=== PATIENT | male | born 1945 | race Caucasian/White ===

== ENCOUNTER → 2021-11-20 13:45 | Outpatient (BNVA) | payer MEDICARE, OTHER, SELFPAY | PROVIDERS: Family Provider Nurse Practitioner Family; PCP Nurse Practitioner Family; Visit Provider Internal Medicine Cardiovascular Disease | DX: I49.8 Other specified cardiac arrhythmias (principal); I10 Essential (primary) hypertension; J45.909 Unspecified asthma, uncomplicated; Z87.891 Personal history of nicotine dependence | CPT/HCPCS: 93005; 99203; 99204 ==

== ENCOUNTER 2021-12-13 14:12 | Outpatient (CLI) | payer MEDICARE, OTHER, SELFPAY ==
--- NOTE | 2021-12-13 15:00 | USCV_ITS ---
Elier Jose Alfredo Age: 76 Gender: M : 1945 Exam Date: 12/13/2021 15:13 Ordering Phys: Bayron Sifuentes MD ([email or web address]) Technologist: Tayler Forrest [place] [facility] [place]: PIERCE, ventricular arrhythmia BP: 128 / 80 HR: 47 Rhythm: Sinus Technical Quality: Good MEASUREMENTS (Male / Female) Normal Values 2D ECHO LV Diastolic Diameter PLAX 5.3 cm 4.2 - 5.9 / 3.9 - 5.3 cm LV Systolic Diameter PLAX 3.6 cm IVS Diastolic Thickness 0.9 cm 0.6 - 1.0 / 0.6 - 0.9 cm IVS Systolic Thickness 1.2 cm LVPW Diastolic Thickness 1.0 cm 0.6 - 1.0 / 0.6 - 0.9 cm LVPW Systolic Thickness 1.8 cm LVOT Diameter 2.1 cm LV Ejection Fraction 2D Teich 59.9 % LV Ejection Fraction MOD 2C 65.4 % LV Ejection Fraction 2C AL 64.9 % LA Diameter 2.3 cm LA Width 2.1 cm LA Height 4.4 cm RA Width 3.0 cm RA Height 4.6 cm Aorta at Sinotubular Diameter 2.6 cm IVC Diameter 1.1 cm M-MODE MV E Point Septal Separation 0.9 cm DOPPLER AV Peak Velocity 158.0 cm/s LVOT Peak Velocity 106.0 cm/s AV Area Cont Eq vti 2.2 cm squared AV Area Cont Eq pk 2.3 cm squared MV Peak Velocity 97.0 cm/s MV Area PHT 2.9 cm squared Mitral E to A Ratio 0.8 MV E' Velocity 36.5 cm/s Mitral E to MV E' Ratio 7.9 Mitral E to LV E' Lateral Ratio 6.4 Mitral E to LV E' Septal Ratio 10.4 TR Peak Velocity 33.0 cm/s TR Peak Gradient 0.4 mmHg Right Atrial Pressure 3.0 mmHg Pulmonary Artery Systolic Pressu 3.4 mmHg PV Peak Velocity 110.0 cm/s RV Acceleration Time 0.2 s RV Ejection Time 0.4 s RV AcT/ET 0.5 FINDINGS Left Ventricle Diffuse hypokinesia of the left ventricular with an ejection fraction of 40-45%.( visual) Normal left ventricular cavity size. Right Ventricle The right ventricle is normal in size and function. Right Atrium The right atrium is normal in size. Left Atrium The left atrium is normal in size. Mitral Valve Thickened mitral valve. Mild mitral valve regurgitation. Aortic Valve Thickened aortic valve. Mild aortic valve regurgitation. Tricuspid Valve No gross abnormalities noted Pulmonic Valve Mild pulmonary valve regurgitation. Pericardium Normal pericardium without effusion. Aorta Normal ascending aorta dimension. IVC The inferior vena cava pulmonary and hepatic veins appear normal. CONCLUSIONS Diffuse hypokinesia of the left ventricle with an ejection fraction of 40-45%Visual). Normal left ventricular cavity size. Thickened mitral valve. Mild mitral valve regurgitation. Thickened aortic valve. Mild aortic valve regurgitation. Mild pulmonary valve regurgitation. There is no pericardial effusion. There are no intracardiac masses. Dr Bayron Sifuentes MD [facility] (Electronically Signed) Final Date: 15 December 2021 18:33 S
== END 2021-12-13 14:13 | disposition home or self-care (01) ==
LOC: RAD 14:12
PROVIDERS: Family Provider Nurse Practitioner Family; PCP Nurse Practitioner Family; Visit Provider Internal Medicine Cardiovascular Disease
DX: I49.8 Other specified cardiac arrhythmias (principal); I08.3 Combined rheumatic disorders of mitral, aortic and tricuspid valves; I09.89 Other specified rheumatic heart diseases
CPT/HCPCS: 93306

== ENCOUNTER 2022-01-17 06:58 | Outpatient (CLI) | payer MEDICARE, OTHER, SELFPAY ==
--- NOTE | 2022-01-17 07:23 | ECG_ITS ---
[facility] Test Date: 2022-01-17 Pat Name: Jose Alfredo Thapa Department: Room: Gender: Male [employer]: : 1945 Requested By: Bayron Sifuentes Order Number: [id number] Fam MD: Bayron Sifuentes M.D. Interpretive Statements NAME OF STUDY: EXERCISE SESTAMIBI STRESS TEST INDICATION: Chest Pain PROCEDURE: The baseline electrocardiogram showed sinus bradycardia with some nonspecific T wave changes. At the baseline, the patient's blood pressure was mm Hg with a heart rate of. The patient exercised for 7 minutes and 19 seconds on a standard Michael protocol. Patient attained a maximum heart rate of 130 beats per minute(89% of the maximum predicted heart rate) with a blood pressure at the peak exercise of 189/101 mm Hg. The EKG at the peak exercise revealed rate related left bundle branch block. Patient did not have any chest pain or any significant arrhythmis with the exercise Sestamibi was injected 1 minute prior to the peak exercise During the recovery phase, there were no new changes. Blood pressure at the end of the recovery phase was 183/108 mm Hg with a heart rate of 80 per minute. The EKG persistently showed left bundle branch block during the recovery phase CONCLUSION: 1. Exercise-induced left bundle branch block, persisting through recovery phase. Patient apparently did not have any symptoms with the EKG changes. 2. No exercise-induced chest pain or cardiac arrhythmia 3. Fair exercise tolerance, attained a maximum of 10.2 METs 4. Sestamibi/Sestamibi perfusion results pending; see separate report. Electronically Signed On 01-25-2022 17:09:28 CDT by Bayron Sifuentes M.D. [id number]
--- NOTE | 2022-01-17 07:23 | NMCV_ITS ---
NM leandro perf SPECT r/s* [id number] Jose Alfredo Thapa Age: 76 Gender: M : 1945 Exam Date: 01/17/2022 08:25 Ordering Phys: Bayron Siufentes MD ([email or web address]) Technologist: KAYLEE Greco Exam Location: [facility] Indications: CORONARY ANGIOPLASTY STATUS STRESS TEST Please see separate stress test report in [facility] for full findings IMAGE PROTOCOL Rest/Stress 1 Exercise Day Radiopharmaceutical Dose (mCi) Administration Site Administered by Rest: Tc-99m 10.8 IV KAYLEE Dickson Sestamibi Stress:Tc-99m 32.4 IV KAYLEE Dickson Sestamibi Rest: 17-Jan-2022 60 Discovery 630 Stress: 17-Jan-2022 30 Discovery 630 Radiopharmaceutical was injected at 85 % maximum heart rate. Images obtained in supine and prone position. SPECT RESULTS Technical Quality: Excellent Raw Data Analysis: Normal Image Corrections: No attenuation or motion correction applied Summed Stress Score: 3 Summed Rest Score: 3 Summed Difference Score: 0 PERFUSION FINDINGS Small area of decreased tracer uptake in the apical septal and LV apex. No significant reversibility was noted FUNCTIONAL RESULTS (calculated via Gated SPECT) Stress Image LV EF (%): 51 Stress EDV (mL):143 TID: 1.03 Stress ESV (mL):70 FUNCTIONAL FINDINGS: Segmental wall motion analysis revealed mild diffuse hypokinesia of the septum and LV apex IMPRESSIONS 1. Myocardial perfusion imaging revealing a small area of persistent decreased tracer uptake in the apical septum and LV apex, suggesting myocardial scarring versus attenuation artifact. 2. Normal LV ejection fraction of 51%. 3. LV wall motion abnormalities as mentioned above. 4. Mildly dilated LV cavity with an end-systolic volume of 70 ml. Low probability for coronary ischemia, based on the above findings No similar previous studies are available for comparison Dr Bayron Sifuentes MD [facility] (Electronically Signed) Final Date: 17 January 2022 20:29 S
[2022-01-17 11:28] VITALS: BP 188/86; PULSE 72
== END 2022-01-17 06:59 | disposition home or self-care (01) ==
LOC: CDL 07:03
PROVIDERS: PCP Nurse Practitioner Family; Visit Provider Internal Medicine Cardiovascular Disease
DX: R07.9 Chest pain, unspecified (principal); Z98.61 Coronary angioplasty status
CPT/HCPCS: 78452; 93017; A9500

== ENCOUNTER → 2022-05-22 14:19 | Outpatient (BNVA) | payer MEDICARE, OTHER, SELFPAY | PROVIDERS: PCP Nurse Practitioner Family; Visit Provider Nurse Practitioner Family | DX: I10 Essential (primary) hypertension (principal); I49.8 Other specified cardiac arrhythmias; Z87.891 Personal history of nicotine dependence | CPT/HCPCS: 99214 ==

== ENCOUNTER → 2022-11-27 15:09 | Outpatient (BNVA) | payer MEDICARE, OTHER, SELFPAY | PROVIDERS: PCP Nurse Practitioner Family; Visit Provider Internal Medicine Cardiovascular Disease | DX: I49.8 Other specified cardiac arrhythmias (principal); I10 Essential (primary) hypertension; I42.9 Cardiomyopathy, unspecified; J45.909 Unspecified asthma, uncomplicated; Z87.891 Personal history of nicotine dependence | CPT/HCPCS: 99214 ==

== ENCOUNTER 2023-05-26 12:20 | Outpatient (CLI) | payer OTHER, SELFPAY ==
[2023-05-26] MEDS: albuterol 2.5 mg/3 mL Neb INHALATION (12:59)
[2023-05-26 13:01] VITALS: PULSE 54; RESP 18; O2SAT 97
[2023-05-26 13:05] VITALS: PULSE 63
== END 2023-05-26 12:21 | disposition home or self-care (01) ==
PROVIDERS: PCP Nurse Practitioner Family; Visit Provider Nurse Practitioner Family
DX: J44.9 Chronic obstructive pulmonary disease, unspecified (principal); R94.2 Abnormal results of pulmonary function studies
CPT/HCPCS: 94060; 94729; J7613

== ENCOUNTER → 2024-01-25 13:45 | Outpatient (BNVA) | payer MEDICARE, OTHER, SELFPAY | PROVIDERS: PCP Nurse Practitioner Family; Visit Provider Internal Medicine Cardiovascular Disease | DX: I42.8 Other cardiomyopathies (principal); I10 Essential (primary) hypertension; I49.8 Other specified cardiac arrhythmias; Z87.891 Personal history of nicotine dependence | CPT/HCPCS: 99214 ==

== ENCOUNTER → 2024-09-23 10:39 | Outpatient (BNVA) | payer OTHER, SELFPAY | PROVIDERS: PCP Nurse Practitioner Family; Visit Provider Nurse Practitioner Family | DX: L57.8 Other skin changes due to chronic exposure to nonionizing radiation (principal); L81.4 Other melanin hyperpigmentation; D22.5 Melanocytic nevi of trunk; L82.1 Other seborrheic keratosis; L57.0 Actinic keratosis | CPT/HCPCS: 17000; 99213 ==

== ENCOUNTER → 2025-03-29 13:47 | Outpatient (BNVA) | payer MEDICARE, OTHER, SELFPAY | PROVIDERS: PCP Nurse Practitioner Family; Visit Provider Internal Medicine Cardiovascular Disease | DX: I42.9 Cardiomyopathy, unspecified (principal); I10 Essential (primary) hypertension; I49.8 Other specified cardiac arrhythmias | CPT/HCPCS: 99214 ==